=== PATIENT | female | born 2000 | race Caucasian/White ===

== ENCOUNTER 2025-03-31 15:50 | Outpatient (CLI) | payer OTHER, SELFPAY | END 2025-03-31 23:59 | disposition home or self-care (01) | LOC: LAB 15:52 | PROVIDERS: PCP Internal Medicine; Visit Provider Obstetrics & Gynecology | DX: Z34.90 Encounter for supervision of normal pregnancy, unspecified, unspecified trimester (principal) | CPT/HCPCS: 36415; 84144; 84702 ==